=== PATIENT | female | born 1945 | race Caucasian/White ===

== ENCOUNTER → 2023-12-09 06:26 | Day surgery (SDC) | payer MEDICARE, OTHER, SELFPAY | LOC: GI 06:26 | PROVIDERS: ATTENDING PHYSICIAN Internal Medicine | DX: Z12.11 Encounter for screening for malignant neoplasm of colon (principal); K63.5 Polyp of colon; K57.30 Diverticulosis of large intestine without perforation or abscess without bleeding; K64.8 Other hemorrhoids; Z86.010 Personal history of colon polyps | CPT/HCPCS: 45380; 88305 ==

== ENCOUNTER 2024-12-21 03:39 | Observation (INO) | payer MEDICARE, OTHER, SELFPAY ==
[2024-12-20 21:45] VITALS: BP 179/98
[2024-12-20 22:09] LABS: % Basophils 0.6 % (0-2); % Eosinophils 4.4 % (0-6); % Immature Granulocytes 0.4 % (0-0.5); % Monocytes 9.7 % (1.7-9.3); % Neutrophils 44.9 % (42.2-75.2); Absolute Basophils 0.1 10^3/uL (0-0.2); Absolute Eosinophils 0.4 10^3/uL (0-0.7); Absolute Lymphocytes 3.3 10^3/uL (1.2-3.4); Absolute Monocytes 0.8 10^3/uL (0.1-0.6); Absolute Neutrophils 3.7 10^3/uL (1.4-6.5); Hemoglobin 12.1 g/dL (12.0-16.0); Mean Corp Hgb Conc. 34.6 g/dL (33.0-37.0); Mean Corpuscular Hgb 32.2 pg (27.0-31.0); Mean Corpuscular Volume 93.1 fL (81.0-99.0); Mean Platelet Volume 12.3 fL (7.4-10.4); Nucleated Red Blood Cells % 0 %; Platelet Count 196 10^3/uL (130-400); Red Blood Cell Count 3.76 10^6/uL (4.20-5.40); Red Cell Dist. Width 12.6 % (11.5-14.5); White Blood Cell Count 8.2 10^3/uL (4.8-10.8)
[2024-12-21 01:05] VITALS: BP 172/81
--- NOTE | 2024-12-21 01:20 | ED.CVA ---
History of Present Illness
General
Chief Complaint: CVA/TIA Symptoms
Source: patient
Exam Limitations: none
Time Seen by Provider: 12/21/24 00:40
Nursing documentation reviewed up to this point in time: agreed with
Onset of Stroke Symptoms
Onset of symptoms known: Yes
Date of onset of symptoms: 12/21/24
History of Present Illness
History of Present Illness:
79-year-old female with history as noted presents to the ER for evaluation after visual disturbance. Patient notes that she was admitted for the past 2 days at [facility] after a TIA�at that time she presented with balance issues, right visual field
cut; she was evaluated with MRI and MRA. 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 She was discharged yesterday on aspirin and Plavix. She says that this evening around 9 PM she had acute onset
of visual disturbance. She describes initially some floaters/flashes in her right visual field followed by what she describes as 'a burst of powder' which obscured her right visual field. She says symptoms were present for roughly 3 hours but
since have completely resolved. She denies any associated symptoms this time�no speech disturbance, no focal weakness or numbness, no headache or neck pain or any other acute issues. She feels completely back to her baseline. She reports
compliance with aspirin and Plavix.
Past History
Past History
ED Past Medical History: Other (Diverticulosis)
ED Past Surgical History: Orthopedic
Social History
Tobacco: Non-smoker
Alcohol: None
Drug: None
Personal:
Living: with family
Employment: Employed
Family History
Family History: Hypertension and CAD; Negative Diabetes or Early CAD
Review of Systems
Review of Systems
All Other Systems: ROS reviewed and negative except as documented in HPI and ROS
Constitutional: Denies fever or chills
Respiratory: Denies trouble breathing
Cardiac: Denies chest pain
ABD/GI: Denies abdominal pain
: Denies flank pain
Musculoskeletal: Denies neck pain or back pain
Neurological: Reports other (Visual disturbance); Denies dizzy, headache, weakness or numbness
Phy Exam
Physical Exam
Physical Exam:
General: Awake, alert, oriented x3; no acute distress
Head: Normocephalic, atraumatic
Eyes: Conjunctiva normal, EOMI, pupils equal round and reactive to light bilaterally
Throat: Airway intact, handling secretions
Neck: Trachea midline, supple without meningismus
Lungs: Clear to auscultation bilaterally, no wheezing, rales, rhonchi
Heart: Regular rate and rhythm, no murmurs, gallops, or rubs
Abd: Soft, non distended, nontender
Neuro: Cranial nerves intact 2 through 12, speech fluid without dysarthria or aphasia, no limb ataxia, motor and sensory intact in all extremities
Skin: no rash
Extremities: No edema in extremities, equal pulses in all extremities
Scores
NIH Stroke Score
Level of Consciousness: 0 - Alert
LOC Questions: 0-Answers both correctly
LOC Commands: 0-Performs both correctly
Best Horizontal Gaze: 0-Normal
Visual Flower: 0=Normal, no visual loss
Facial Palsy: 0=Normal, symmetrical
Motor - Right Arm: 0=No drift 10 seconds
Motor - Left Arm: 0=No drift 10 seconds
Motor - Right Le-No drift 5 seconds
Motor - Left Le-No drift 5 seconds
Limb Ataxia: 0-Absent
Sensation: 0-Normal
Best Language: 0-No aphasia
Dysarthria: 0-Normal
Extinction and Inattention: 0-No abnormality
NIH Total Score:: 0
Heart Failure Risk
Heart Failure Risk Score: Not Applicable
Heart Score for Chest Pain Patients
STEMI patient?: Not applicable
Withdrawal Assessment of Alcohol
Withdrawal Assessment Completed?: Not applicable
Course
Orders/Labs/Results
Orders:
Orders
12/20/24 21:49
CT Head W/o Iv Contrast Urgent
Comment:
Reason For Exam: visual changes
12/20/24 22:04
Complete Blood Count/With Diff Urgent
12/20/24 22:14
Comprehensive Metabolic Panel Urgent
12/21/24 01:09
VerifyNow Aspirin Urgent
Pt on daily regimen OR been given initial dose of aspirin?: Yes
VerifyNow PRU Urgent
Is the patient on antiplatelet medication, post 7 days?: Yes
12/21/24 01:11
CT Head & Neck Angio W/wo IV Urgent
Comment:
Reason For Exam: right vision cut
12/21/24 01:39
Electrocardiogram (*1) Urgent
Reason for Study: TIA/Stroke
EKG- Treatment ONCE
Abnormal Lab Results
12/20/24
22:04
RBC 3.76 L 10^6/uL
(4.20-5.40)
Hct 35.0 L %
(37.0-47.0)
MCH 32.2 H pg
(27.0-31.0)
MPV 12.3 H fL
(7.4-10.4)
Absolute Monos (auto) 0.8 H 10^3/uL
(0.1-0.6)
Monocytes % 9.7 H %
(1.7-9.3)
12/20/24 22:04
Vital Signs
Initial and Last Documented VS:
Initial Vital Signs
Temp Pulse Resp BP Pulse Ox
36.8 C 92 18 179/98 95
12/20/24 21:45 12/20/24 21:45 12/20/24 21:45 12/20/24 21:45 12/20/24 21:45
Last Documented Vital Signs
Temp Pulse Resp BP Pulse Ox
36.8 C 92 18 179/98 95
12/20/24 21:45 12/20/24 21:45 12/20/24 21:45 12/20/24 21:45 12/21/24 01:20
MDM/Problems Addressed
Differential Diagnosis Includes:
TIA/stroke, complex migraine, temporal arteritis, retinal tear
MDM/Problems Addressed:
79-year-old female presents after transient visual disturbance as described above; she did have recent admission for TIA and having tenderness on aspirin and Plavix. Symptoms fortunately have completely resolved. Hypertensive but otherwise normal
vitals. Physical exam as above. Check EKG. Send basic labs. CT head. Reassess after the above.
CT head shows no acute abnormalities. Discussed the case with neurology especially in light of her recent admission at [facility] for TIA. He recommended sending 'verify now' tests for both aspirin and Plavix to evaluate active efficacy in this
patient who had breakthrough possible TIA symptoms. Recommended repeating CTA. Will plan for admission to the hospitalist service.
Acute Exacerbation and/or Progression of Chronic Illness:
Acutely hypertensive
Acute Exacerbation and/or Progression of Chronic Illness: HTN
*Pulse Oximetry
SaO2: 95
Oxygen Mode of Delivery: Room air
Patient hypoxic: no (95%)
*EKG
Interpreted by ED Provider?: Yes
Heart Rate: 87
Rate: normal
Rhythm: sinus
[place]: left axis deviation
Interval: first degree heart block
QRS Pattern: normal QRS
Ischemia: other (Inferior infarct, anterior infarct both age-indeterminate)
*Critical Care Note
Total Time (30-74mins, 75-104mins- exclusive of procedures): Not Applicable
Data Reviewed
Review of Other/Old Records Reveals: Labs, Records and Radiology Studies (I was able to review report of MRI from [facility] provided by daughter)
Source: patient and family
Patient Management
Discussion with other providers: Hospitalist (Discussed with hospitalist) and Take Away Worker (Discussed with neurology)
Escalation/DeEscalation of care consider admission/obs:
Admission indicated
ED Attending Note
-
Portions of this chart may have been created with voice recognition software.� Occasional wrong word or��sound alike� substitutions may have occurred due to the inherent limitations of voice recognition software.
Discharge Plan
Departure
Discharge Problem:
TIA (transient ischemic attack)
Prescriptions:
No Action
calcium carbonate [calcium] 500 MG tablet
500 mg PO DAILY
atorvastatin [Lipitor] 40 mg Tablet
40 mg PO HS
clopidogrel [Plavix] 75 mg Tablet
75 mg PO DAILY
aspirin 81 mg Tablet
81 mg PO DAILY
Referrals:
Caleb Jimenes MD [Family Provider, Internal Medicine]
Interventions
Interventions:
*Risk Screen - Suicide Last Done: 12/20/24 21:45
*General Assessment Last Done: 12/21/24 00:52
*Neglect/Abuse Screening Last Done: 12/20/24 21:45
*ED- Fall Risk Assessment Last Done: 12/21/24 00:52
*ED COVID-19 Vaccine History Last Done: 12/21/24 00:52
ED- Pulmonary Assessment Last Done: 12/21/24 00:52
ED- Neurological Assessment Last Done: 12/21/24 00:52
ED- Cardiac Assessment Last Done: 12/21/24 00:52
Discharge Date and Time
Print Language: VIETNAMESE
[2024-12-21 02:20] LABS: VerifyNow PRU 256 PRU (180-376)
[2024-12-21 02:30] LABS: ALT (SGPT) 15 U/L (0-35); AST (SGOT) 25 U/L (14-36); Albumin 4.2 g/dl (3.5-5.0); Alkaline Phosphatase 62 U/L (38-126); Blood Urea Nitrogen 29 mg/dl (7-17); Calcium 9.9 mg/dl (8.4-10.2); Carbon Dioxide 27 mmol/L (22-30); Chloride 108 mmol/L (98-107); Glucose 110 mg/dl (70-99); Potassium 4.5 mmol/L (3.5-5.1); Sodium 141 mmol/L (135-145); Total Bilirubin 0.7 mg/dl (0.2-1.3); eGFR > 60.00
[2024-12-21 02:43] LABS: VerifyNow Aspirin 475 ARU
--- NOTE | 2024-12-21 03:30 | HPS.HSE ---
Family Physician
-
Family Physician: Caleb Jimenes MD
Chief Complaint
-
Vision changes
History of Present Illness
Patient is a 79y F with PMH significant for hypertension and recent CVA / TIA who presents to ED complaining of vision changes. Patient states that she felt weak, unsteady and 'not herself' on Saturday. On she appreciated R visual
field vision loss. She presented to [facility] for evaluation where her daughter works as a physician. Patient was admitted and evaluated for TIA / CVA. 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 Patient was discharged on ASA, Plavix and
atorvastatin. She states that she was advised to discontinue her losartan - though this appears to have been a misunderstanding on her part.
Patient notes that she felt well until this afternoon when she experienced some patchy, blurred vision. This started around 6PM and was described as a brief 'puff of powder or smoke' in her visual field. No vision loss as she had previously.
Different areas of the visual field appeared to be affected each time. Symptoms were intermittent and lasted for about 3 hours before resolving completely. No further episodes since that time. No accompanying complaints of headache, numbness,
weakness, etc.
Medical History
Past Medical History
Past Medical History: Reports Other
Additional Past Medical History:
Hypertension
CVA / TIA
Osteoarthritis
Past Surgical History: Reports Other
Additional Past Surgical History:
Back Surgery x 2
Knee Arthroscopy x 3
Social History
Tobacco: Non-smoker
Alcohol: Occasional (Rare)
Drug: None
Family History
Family History: Not pertinent
Allergies / Home Medications
Allergies reflects when Allergies were last updated in [employer].
Home Medications with original date entered in [employer]
Allergy/Medication List:
Allergies
Allergy/AdvReac Type Severity Reaction Status Date / Time
Penicillins Allergy red streaks Verified 12/20/24 21:45
Home Medications
calcium carbonate (calcium) 500 mg PO DAILY 10/27/13
aspirin 81 mg tablet 81 mg PO DAILY 12/21/24
atorvastatin 40 mg tablet (Lipitor) 40 mg PO HS 12/21/24
clopidogrel 75 mg tablet (Plavix) 75 mg PO DAILY 12/21/24
Review of Systems
-
History Source: Patient
A 12 point ROS was completed and negative except as noted: Yes
Constitutional: Denies Fever or Chills
EENT: Reports Other (Vision changes)
Respiratory: Denies Cough or Trouble Breathing
Cardiac: Denies Chest Pain or Palpitations
Abdomen/GI: Denies Abdominal Pain, Nausea, Vomiting or Diarrhea
: Denies Dysuria
Musculoskeletal: Denies Joint Pain or Edema
Neurological: Denies Dizzy, Headache, Weakness or Numbness
Psych: Denies Depression or Anxiety
Physical Exam
Vital Signs
Vital Signs
Temp Pulse Resp BP Pulse Ox
98.2 F 92 18 179/98 95
12/20/24 21:45 12/20/24 21:45 12/20/24 21:45 12/20/24 21:45 12/21/24 01:20
Physical Exam
General: Other (79y F in no acute distress.)
HEENT: Moist mucous membranes and PERRLA
Respiratory: Clear; No Wheezes, Rales or Rhonchi
Cardiac: S1/S2 and Regular Rhythm; No Murmur
GI: Soft, Non Tender, Non Distended and Normal Bowel Sounds
Musculoskeletal: No Clubbing, No Cyanosis and No Edema
Neuro: AO x 3 and Nonfocal/grossly intact
Laboratory Results
-
12/20/24 22:04
12/21/24 01:52
Laboratory Results
Total Bilirubin 0.7 mg/dl (0.2-1.3) 12/21/24 01:52
AST 25 U/L (14-36) 12/21/24 01:52
ALT 15 U/L (0-35) 12/21/24 01:52
Alkaline Phosphatase 62 U/L (38-126) 12/21/24 01:52
Impression/Plan
-
A/P: Patient is a 79y F with PMH significant for hypertension and recent CVA / TIA who presents to ED for evaluation of vision changes.
CVA / TIA
- Observe overnight for further evaluation and treatment.
- ED spoke with Neurology who requested VerifyNOW testing and repeat CTA which have been ordered.
- Follow-up these results.
- Continue ASA / Plavix for now.
- Monitor for any new / recurrent symptoms.
- Neurology eval in the AM.
Benign Hypertension
- BP significantly elevated in the ED - likely due to mistaken discontinuation of losartan.
- Restart losartan with first dose now.
- Adjust med regimen as needed with goal of normotension.
DVT Prophylaxis: SCDs
Code Status: Full
[2024-12-21] MEDS: COZAAR 25 MG PO (03:52)
[2024-12-21 04:01] VITALS: BP 150/79
[2024-12-21 05:05] VITALS: BP 160/86; BMI 26.4
--- NOTE | 2024-12-21 07:24 | PTCARENOTE ---
Pt aaox3 able to make her needs known. Denies of any pain or discomfort.No other complaints noted from pt.Pt oriented to room & call eason in reach.Plan of care continued.
[2024-12-21 07:49] VITALS: BP 123/77
[2024-12-21] MEDS: OSCAL CAL 500 500 MG PO (07:59)
[2024-12-21] MEDS: ASPIR LOW (ENTERIC COATED) 81 MG PO (07:59)
[2024-12-21] MEDS: PLAVIX 75 MG PO (08:00)
[2024-12-21 11:08] VITALS: BP 141/86
--- NOTE | 2024-12-21 14:37 | CM ---
biofuels engineering manager reviewed patient's chart and met with patient and patient lives alone in a [facility], with 1st floor bed and bathroom, patient is independent with adl's and ambulation, no dme, patient runs up to 2 miles per day, home when stable, no
needs.
PCP: Dr Jimenes
Pharmacy: [facility] on [address] [facility] in [place].
[2024-12-21 15:28] VITALS: BP 133/78
--- NOTE | 2024-12-21 15:55 | W.PN.HOSP.TC ---
Addendum entered and electronically signed by Damion Wang MD 12/21/24 17:57:
Discussed with neurology. Appreciate input. Continue dual antiplatelets for 90 days and increase Lipitor to 80 mg
Okay for discharge
Original Note:
Today's Communication/Plan
-
Await neuro and DC if OK
Assessment / Plan
Assessment / Plan
79-year-old female with vision changes. she had right visual field loss she went to [facility] was admitted and evaluated for TIA/CVA. 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 MRI was negative for stroke. Patient was discharged on
aspirin Plavix and statin and patient understood that she was advised to discontinue losartan but this was by mistake. Patient came with patchy blurry vision described as 'puff of powder or smoke' in the right eye lasted about 3 hours then resolved
completely.
CTA of the head and neck-no acute vascular pathology. Multilevel DDD. Subcentimeter hypodense left thyroid lesions
Head CT-no acute changes. Mild atrophy and mild chronic small vessel changes.
EKG-sinus rhythm, left axis deviation, PVCs
Patient is awake and alert
Cardiovascular system S1-S2 appreciated
Chest clear to auscultation
No facial droop
Normal visual field, patient is able to read with right eye
No extraocular muscle problems
Pupils equal and reactive bilaterally
No sensory or motor defects
# Visual changes
Admitted for CVA/TIA workup
Verified now assay-there is evidence that aspirin is causing platelet dysfunction
P2 Y12 inhibitor effect intermediate. But it has not been that long since she was started on Plavix she only took 2 doses
CTA as above
Continue aspirin Plavix and statin
Neurology has already been consulted-follow recommendations
Patient has an appointment with Dr. Pardo, tack puller machine tomorrow
# Hypertension
Patient mistook and discontinued losartan-restarted
# Multilevel degenerative disc disease. History of back surgery for spinal stenosis
# Subcentimeter hypodense left thyroid lesions likely benign nodules. Dedicated thyroid ultrasound as OP discussed with daughters
# Diverticulosis
# DVT prophylaxis-Lovenox
# Full code
Discussed with case management and nursing
Discussed with 2 daughters one daughter on the phone and 1 daughter at bedside
Patient is anxious to go home
Part of this note was created using voice recognition system. Occasional wrong word or��sound alike� substitutions may have inadvertently occurred due to the inherent limitations of voice recognition software. If noted kindly bring it to my
attention for correction.
Anticipated Discharge: Today
Subjective/Interval History
-
Date of Service: December 21, 2024
Objective Data
-
Vital Signs:
Vital Signs
Temp Pulse Resp BP Pulse Ox
98.6 F 87 16 133/78 94
12/21/24 15:28 12/21/24 15:28 12/21/24 15:28 12/21/24 15:28 12/21/24 15:28
I&O
12/20/24 12/21/24 12/22/24
06:59 06:59 06:59
Intake Total 440 / 440
Balance 440 / 440
--- NOTE | 2024-12-21 17:59 | W.DS.TRANS ---
Addendum entered and electronically signed by Damion Wang MD 12/22/24 16:57:
Dictation- [id number]
Original Note:
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
-
Discharge Instructions:
Discharge Diagnosis/Procedures Visual changes
Hypertension
Recent TIA
Thyroid nodules
Cervical DJD
Diverticulosis
Diet 2 Gram Sodium
Activity As tolerated
Blood Work Liver function tests, cholesterol levels 8 to 12
weeks
Others Tests Ultrasound of the thyroid recommended
Instructions:
Stand-Alone Forms:
Changes to Home Medications: Yes
Discharge Medications:
DC Medications w/original date entered in [employer]
calcium carbonate (calcium) 500 mg PO DAILY 10/27/13
aspirin 81 mg tablet 81 mg PO DAILY Blood clot prevention/tx #0 tabs 12/21/24
atorvastatin 40 mg tablet (Lipitor) 80 mg (2 x 40 mg) PO HS High cholesterol #30 tabs 12/21/24
clopidogrel 75 mg tablet (Plavix) 75 mg PO DAILY Blood clot prevention/tx #0 tabs 12/21/24
losartan 25 mg tablet 25 mg PO DAILY Blood pressure #0 tabs 12/21/24
Home Medication Changes
Losartan is new
Lipitor dose increased to 80 mg
Pending Results: No
--- NOTE | 2024-12-21 18:46 | W.PN.NEURO.1 ---
Today's Communication / Plan
-
no further workup, d/c home
Lipitor increase to 80
Neuro Assessment/Plan
Assessment
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 Agree with initial tx 90 days of DAPT and Lipitor 40, as medical treatment was shown to have lower stroke risk with ~6% stroke risk in 30 days vs wingspan stent which had ~14% risk in the SAMMPRIS trial
She now presents probably simple partial seizure, now resolved. potentially this could represent her having stroked part of this territory, however i don't believe MRI is necessary as in either case I would continue 90 days of DAPT and increase
Lipitor to 80 mg, after which she could stop Plavix, continue ASA 81 and Lipitor 80. Noted AAN guideline recommendations for ASA 325 in this situation though I believe ASA 81 daily should be sufficient for full platelet inhibition
Subjective/Objective
Subjective Data
Date of Service: December 21, 2024
from h&p:
Patient is a 79y F with PMH significant for hypertension and recent CVA / TIA who presents to ED complaining of vision changes. Patient states that she felt weak, unsteady and 'not herself' on Saturday. On she appreciated R visual
field vision loss. She presented to [facility] for evaluation where her daughter works as a physician. Patient was admitted and evaluated for TIA / CVA. 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 Patient was discharged on ASA, Plavix and
atorvastatin. She states that she was advised to discontinue her losartan - though this appears to have been a misunderstanding on her part.
Patient notes that she felt well until this afternoon when she experienced some patchy, blurred vision. This started around 6PM and was described as a brief 'puff of powder or smoke' in her visual field. No vision loss as she had previously.
Different areas of the visual field appeared to be affected each time. Symptoms were intermittent and lasted for about 3 hours before resolving completely. No further episodes since that time. No accompanying complaints of headache, numbness,
weakness, etc.
patient and dtr confirm the above. had MRI and MRA at [facility] showing left P2 stenosis, no stroke. the right sided visual field loss resolved quickly and did not recur. Yesterday no recurrence of visual field deficits; right sided smoke/powder
hallucinations were always right sided, multiple episodes over 3 hours, have not returned
Objective Data
Vital Signs
Temp Pulse Resp BP Pulse Ox
37.0 C 87 16 133/78 94
12/21/24 15:28 12/21/24 15:28 12/21/24 15:28 12/21/24 15:28 12/21/24 15:28
Lab Results
12/20/24 22:04
12/21/24 01:52
Sodium 141 mmol/L (135-145) 12/21/24 01:52
Potassium 4.5 mmol/L (3.5-5.1) 12/21/24 01:52
BUN 29 mg/dl (7-17) H 12/21/24 01:52
Glucose 110 mg/dl (70-99) H 12/21/24 01:52
Calcium 9.9 mg/dl (8.4-10.2) 12/21/24 01:52
Patient Allergies
Penicillins Allergy (Verified 12/20/24 21:45)
red streaks
Physical Exam
-
AAOx3, speech clear, language intact
VFF, EOMI, face symmetric
full strength b/l UE/LE
sensation intact to touch/temp
DTR 1+ symmetric
== END 2024-12-21 18:30 | disposition home or self-care (01) ==
LOC: 4 EAST ACU 03:39
PROVIDERS: Emergency Medicine; ADMITTING PHYSICIAN Hospitalist; ATTENDING PHYSICIAN Hospitalist; EMERGENCY PHYSICIAN Emergency Medicine; FAMILY PHYSICIAN Internal Medicine
DX: G45.9 Transient cerebral ischemic attack, unspecified (principal); H54.7 Unspecified visual loss; I10 Essential (primary) hypertension; Z79.82 Long term (current) use of aspirin; Z79.02 Long term (current) use of antithrombotics/antiplatelets; Z86.73 Personal history of transient ischemic attack (TIA), and cerebral infarction without residual deficits; D69.1 Qualitative platelet defects; M50.30 Other cervical disc degeneration, unspecified cervical region; K57.90 Diverticulosis of intestine, part unspecified, without perforation or abscess without bleeding
CPT/HCPCS: 70450; 70496; 70498; 80053; 85025; 85576; 93005; 99285; G0378; Q9967